=== PATIENT | male | born 1975 | race Caucasian/White ===

== ENCOUNTER 2016-09-17 09:10 | Emergency (ER) | payer OTHER ==
[~2016-09-17] VITALS: Ht 188 cm; Wt 92.0 kg
[~2016-09-17 09:10] MED LIST: ZOFR4TAB3 SL
[2016-09-17 09:13] VITALS: BP 136/65; PULSE 68; RESP 18; TEMP 98.3; O2SAT 97
[2016-09-17] MEDS ORDERED: CEPH-460 PO (11:12)
[2016-09-17] MEDS ORDERED: BACT800T5 PO (11:12)
[2016-09-17] MEDS ORDERED: IBUP800T23 PO (11:12)
--- NOTE | 2016-09-17 11:14 | PD ---
HPI Chief Complaint: Skin Problem Time Seen by Provider: 11:08 Travel History International Travel<30 days: No Contact w/Intl Traveler<30days: No Traveled to known affect area: No History of Present Illness HPI 41 year old male presents to the emergency department for evaluation of an erythematous lump to his back. Patient states he had a nonpainful, nonerythematous lump for approximately 9 years. However, over the past 2-3 days , has become erythematous and more painful. He states that he has trouble sleeping on his back due to the pain. Patient denies any fevers or chills. He has no chronic medical problems and takes no prescribed medications. Patient denies any other complaints at this time. PFSH Past Medical History Hx Anticoagulant Therapy: No Cardiovascular Problems: No Chemotherapy: No Cerebrovascular Accident: No Diabetes: No Diminished Hearing: No Respiratory: No Past Surgical History Ear Surgery: Yes (TUBES CHILD) Tonsillectomy: Yes Social History Alcohol Use: Yes (SOCIALLY) Tobacco Use: No Substance Use: No Allergies-Medications (Allergen,Severity, Reaction): Coded Allergies: No Known Allergies (Unverified , 10/06/15) Reported Meds & Prescriptions Reported Meds & Active Scripts Active Ibuprofen 800 Mg Tab 800 Mg PO TID PRN Keflex (Cephalexin) 500 Mg Cap 500 Mg PO Q6H 10 Days Bactrim DS (Sulfamethoxazole-Trimethoprim) 800-160 Mg Tab 1 Tab PO BID Zofran ODT (Ondansetron HCl) 4 Mg Tab 4 Mg SL Q6H PRN FOR NAUSEA/VOMITING Review of Systems Except as stated in HPI: all other systems reviewed are Neg Physical Exam Narrative GENERAL: Well-developed well-nourished male patient, Ambulatory. Afebrile. SKIN: Warm and dry. Patient has a 4cm x 3cm erythematous lump that is fluctuant to the mid back. No surrounding erythema. HEAD: Normocephalic. Atraumatic. EYES: No scleral icterus. No injection or drainage. NECK: Supple, trachea midline. No JVD or lymphadenopathy. CARDIOVASCULAR: Regular rate and rhythm without murmurs, gallops, or rubs. RESPIRATORY: Breath sounds equal bilaterally. No accessory muscle use. Lungs sounds are clear to auscultation. GASTROINTESTINAL: Abdomen soft, non-tender, nondistended. MUSCULOSKELETAL: No cyanosis, or edema. Data Data Last Documented VS Vital Signs Date Time Temp Pulse Resp B/P Pulse Ox O2 Delivery O2 Flow Rate FiO2 09/17/16 09:13 98.3 68 18 136/65 97 Room Air Orders Wound Culture And Gram Stain (09/17/16 11:07) Lidocai-Epi 1%-1:100,000 Inj (Xylocaine- (09/17/16 11:15) Sulfamet-Trimeth Ds 800-160 Mg (Bactrim (09/17/16 11:15) Cephalexin (Keflex) (09/17/16 11:15) MDM Medical Decision Making Medical Screen Exam Complete: Yes Emergency Medical Condition: Yes Medical Record Reviewed: Yes Differential Diagnosis Infected sebaceous cyst versus abscess versus cellulitis Narrative Course 41-year-old male presents to the emergency department for evaluation of a erythematous, painful lump to his mid back. Patient reports having a lump for 9 years, but just recently came erythematous and painful. Physical exam is consistent with an infected sebaceous cyst. The patient gives verbal consent for incision and drainage. Patient will be given first dose of Bactrim and Keflex in the emergency department. He is instructed on proper wound care. The patient is agreeable to this plan. Procedures Procedure Narrative INCISION AND DRAINAGE OF ABSCESS: The area was prepped and was sterilely draped. A subcutaneous wheal of 1% Xylocaine with epinephrine with a total number 4 mL was used to anesthetize the area. The area was properly anesthetized. A number 11 scalpel was used to make a 1 -cm incision across the area of the abscess. Cultures were obtained. The abscess was drained an irrigated with normal saline. Quarter inch iodoform packing was placed in the wound. Sterile dressing applied. Patient advised to have packing removed in two days. Diagnosis Primary Impression: Infected sebaceous cyst Referrals: Primary Care Physician call for appointment Patient Instructions: Abscess (ED), Abscess Incision and Drainage (ED), General Instructions Departure Forms: Tests/Procedures, Work Release Enter return to work date: Sep 19, 2016 Additional Instructions: Clean twice daily with soap and water and apply [id number] antibiotic ointment. Keep clean and dry. Take antibiotics as directed until gone. Take ibuprofen as instructed as needed with food for pain. Packing removal in 2 days. Return to the emergency department for any acute worsening of symptoms. Med/Other Pt SpecificInfo: Prescription(s) given Scripts Ibuprofen 800 Mg [id number] Mg PO TID PRN (PAIN SCALE 1 TO 10) #21 TAB Ref 0 Prov:Mackenzie Mckay 09/17/16 Cephalexin (Keflex)500 Mg [id number] Mg PO Q6H 10 Days Ref 0 Prov:Mackenzie Mckay 09/17/16 Sulfamethoxazole-Trimethoprim (Bactrim DS)800-160 Mg Tab1 Tab PO BID #20 TAB Ref 0 Prov:Mackenzie Mckay 09/17/16 Disposition: 01 DISCHARGE HOME Condition: Stable Mackenzie Mckay Sep 17, 2016 11:14
[2016-09-17] MEDS ORDERED: LIDOCAINE 1%/EPINEPHrine 1:100,000 SOLN 20 ML VIAL INFIL ONE (11:15)
[2016-09-17] MEDS ORDERED: SULFAMETHOXAZOLE-TRIMETHOPRIM DS 800-160 MG TAB PO ONE (11:15)
[2016-09-17] MEDS ORDERED: CEPHALEXIN MONOHYDRATE 500 MG CAP PO ONE (11:15)
== END 2016-09-17 12:34 | disposition home or self-care (01) ==
LOC: NEPB 09:10
DX: L72.3 Sebaceous cyst (principal); A49.9 Bacterial infection, unspecified
CPT/HCPCS: 10061; 87070; 87185; 87205

== ENCOUNTER 2017-02-12 10:57 | Emergency (ER) | payer SELFPAY ==
[~2017-02-12] VITALS: Ht 188 cm; Wt 93.2 kg
[~2017-02-12 10:57] MED LIST changes: +BACT800T5 PO; +CEPH-460 PO; +IBUP800T23 PO
[2017-02-12 11:00] VITALS: BP 125/81; PULSE 60; RESP 20; TEMP 98.1; O2SAT 98
--- NOTE | 2017-02-12 11:36 | PD ---
Physical Exam Time Seen by Provider: 11:34 Narrative 41 y/o male here with L sided chest pain, tingling in L arm which started at 7 AM today. Vital signs reviewed. Seen at triage desk. Awaiting bed placement. Data Data Last Documented VS Vital Signs Date Time Temp Pulse Resp B/P Pulse Ox O2 Delivery O2 Flow Rate FiO2 02/12/17 11:00 98.1 60 20 125/81 98 Room Air Orders Electrocardiogram (02/12/17 ) [facility] Medical Record Reviewed: Yes Supervised Visit with DOMI: Robe Robin Feb 12, 2017 11:36
[2017-02-12 12:11] LABS: AUTOMATED NEUTROPHIL # 5.5 TH/MM3 (1.8-7.7); BASOPHIL # 0.1 TH/MM3 (0-0.2); BASOPHIL % 0.6 % (0.0-2.0); EOSINOPHIL # 0.5 TH/MM3 (0-0.4); EOSINOPHIL % 5.9 % (0.0-4.0); HEMATOCRIT 44.9 % (39.0-51.0); HEMO FLAGS DIFF FINAL; LYMPH % 21.4 % (9.0-44.0); LYMPHOCYTE # 1.8 TH/MM3 (1.0-4.8); MEAN CELL VOLUME 93.2 FL (80.0-100.0); MEAN CORPUSCULAR HEMOGLOBIN 30.5 PG (27.0-34.0); MEAN CORPUSCULAR HGB CONC 32.7 % (32.0-36.0); MONO % 8.1 % (0.0-8.0); PLATELET COUNT 302 TH/MM3 (150-450); RED BLOOD COUNT 4.82 MIL/MM3 (4.50-5.90); RED CELL DISTRIBUTION WIDTH 13.2 % (11.6-17.2); WHITE BLOOD COUNT 8.5 TH/MM3 (4.0-11.0)
--- NOTE | 2017-02-12 12:17 | RADRPT ---
EXAM DATE/TIME: 02/12/2017 12:06 [facility] COMPARISON: CHEST PA & LAT, October 05, 2015, 12:21. INDICATIONS : Chest pains with tightness. MEDICAL HISTORY : None. SURGICAL HISTORY : None. ENCOUNTER: Initial ACUITY: 2 days PAIN SCORE: 6/10 LOCATION: Bilateral chest FINDINGS: The lungs are clear without infiltrate, nodule, or mass. There is no appreciable pleural effusion fo r technique. Heart and mediastinum are unremarkable. CONCLUSION: No acute cardiopulmonary disease. Fabien Fraser MD on February 12, 2017 at 12:15 Board Certified Radiologist. This report was verified electronically.
[2017-02-12 12:27] VITALS: BP 124/65; PULSE 59; RESP 18; O2SAT 96
[2017-02-12 12:30] LABS: APTT (PATIENT) 28.8 SEC (24.3-30.1); INTERNATIONAL NORMALIZED RATIO 0.9 RATIO; PROTHROMBIN TIME - PATIENT 10.4 SEC (9.8-11.6)
[2017-02-12] MEDS ORDERED: NITROGLYCERIN 0.4 MG SL 25 TABS/BTL SL ONE (13:00)
[2017-02-12] MEDS ORDERED: ASPIRIN 81 MG CHEW TAB CHEW ONE (13:00)
--- NOTE | 2017-02-12 13:00 | PD ---
HPI Chief Complaint: Chest Pain Time Seen by Provider: 12:52 Travel History International Travel<30 days: No Contact w/Intl Traveler<30days: No Traveled to known affect area: No History of Present Illness HPI 41-year-old male presents to the emergency department for evaluation of left- sided chest pain that occurred upon awakening this morning around 7 AM. Patient states that he also has pain and tingling in the left arm. Patient denies ever having this pain in the past. He states that when he walked outside in the humidity, and the pain worsened. He states it feels like a chest tightness. He states his shortness of breath only when outside. He states that taking a deep breath does make the pain worse. Movement does not impact the pain. He states that he had chills last night with diaphoresis. No nausea or vomiting. He denies any fevers or chills. No hemoptysis. Has reported a mild cough. No congestion. No leg edema. No history DVT or PE. He does state that he does a lot of heavy lifting in his job, but nothing out of the ordinary. Patient has no chronic medical problems and takes no prescribed medications. He quit smoking tobacco approximately years ago. He denies any cardiac history. No history of stress test or cardiac catheterization. He has not had aspirin today. Patient states pain was initially 8/10, but has decreased on its own and is currently a 5/10. PFSH Past Medical History Hx Anticoagulant Therapy: No Cardiovascular Problems: No Chemotherapy: No Cerebrovascular Accident: No Diabetes: No Diminished Hearing: No Respiratory: No Past Surgical History Ear Surgery: Yes (TUBES CHILD) Tonsillectomy: Yes Social History Alcohol Use: No (SOCIALLY) Tobacco Use: No Substance Use: No Allergies-Medications (Allergen,Severity, Reaction): Coded Allergies: No Known Allergies (Unverified , 02/12/17) Reported Meds & Prescriptions Reported Meds & Active Scripts Active Ibuprofen 800 Mg Tab 800 Mg PO TID PRN Keflex (Cephalexin) 500 Mg Cap 500 Mg PO Q6H 10 Days Bactrim DS (Sulfamethoxazole-Trimethoprim) 800-160 Mg Tab 1 Tab PO BID Zofran ODT (Ondansetron HCl) 4 Mg Tab 4 Mg SL Q6H PRN FOR NAUSEA/VOMITING Review of Systems Except as stated in HPI: all other systems reviewed are Neg Physical Exam Narrative GENERAL: Well-nourished, well-developed male patient, afebrile. SKIN: Focused skin assessment warm/dry. HEAD: Normocephalic. Atraumatic. EYES: No scleral icterus. No injection or drainage. NECK: Supple, trachea midline. No JVD or lymphadenopathy. CARDIOVASCULAR: Regular rate and rhythm without murmurs, gallops, or rubs. Bilateral radial and pedal pulses 2+. RESPIRATORY: Breath sounds equal bilaterally. No accessory muscle use. Lungs sounds are clear to auscultation. GASTROINTESTINAL: Abdomen soft, non-tender, nondistended. MUSCULOSKELETAL: No cyanosis, or edema. Chest pain is mildly reproducible with palpation. BACK: Nontender without obvious deformity. No CVA tenderness. Data Data Last Documented VS Vital Signs Date Time Temp Pulse Resp B/P Pulse Ox O2 Delivery O2 Flow Rate FiO2 02/12/17 12:27 59 18 124/65 96 Room Air 02/12/17 11:00 98.1 Orders Electrocardiogram (02/12/17 ) Basic Metabolic Panel (Bmp) (02/12/17 11:34) Ckmb (Isoenzyme) Profile (02/12/17 11:34) Complete Blood Count With Diff (02/12/17 11:34) Magnesium (Mg) (02/12/17 11:34) Prothrombin Time / Inr (Pt) (02/12/17 11:34) Act Partial Throm Time (Ptt) (02/12/17 11:34) Troponin I (02/12/17 11:34) Chest, Pa & Lat (02/12/17 11:34) Aspirin Chew (Aspirin Chew) (02/12/17 13:00) Nitroglycerin Sl (Nitrostat Sl) (02/12/17 13:00) CKMB (02/12/17 11:50) CKMB% (02/12/17 11:50) Ondansetron Odt (Zofran Odt) (02/12/17 13:30) Labs Laboratory Tests Test 02/12/17 11:50 White Blood Count 8.5 TH/MM3 Red Blood Count 4.82 MIL/MM3 Hemoglobin 14.7 GM/DL Hematocrit 44.9 % Mean Corpuscular Volume 93.2 FL Mean Corpuscular Hemoglobin 30.5 PG Mean Corpuscular Hemoglobin 32.7 % Concent Red Cell Distribution Width 13.2 % Platelet Count 302 TH/MM3 Mean Platelet Volume 8.0 FL Neutrophils (%) (Auto) 64.0 % Lymphocytes (%) (Auto) 21.4 % Monocytes (%) (Auto) 8.1 % Eosinophils (%) (Auto) 5.9 % Basophils (%) (Auto) 0.6 % Neutrophils # (Auto) 5.5 TH/MM3 Lymphocytes # (Auto) 1.8 TH/MM3 Monocytes # (Auto) 0.7 TH/MM3 Eosinophils # (Auto) 0.5 TH/MM3 Basophils # (Auto) 0.1 TH/MM3 CBC Comment DIFF FINAL Differential Comment Prothrombin Time 10.4 SEC Prothromb Time International 0.9 RATIO Ratio Activated Partial 28.8 SEC Thromboplast Time Sodium Level 136 MEQ/L Potassium Level 4.3 MEQ/L Chloride Level 102 MEQ/L Carbon Dioxide Level 27.4 MEQ/L Anion Gap 7 MEQ/L Blood Urea Nitrogen 11 MG/DL Creatinine 0.87 MG/DL Estimat Glomerular Filtration 97 ML/MIN Rate Random Glucose 82 MG/DL Calcium Level 9.4 MG/DL Magnesium Level 2.2 MG/DL Total Creatine Kinase 253 U/L Creatine Kinase MB 0.9 NG/ML Troponin I LESS THAN 0.02 NG/ML MDM Medical Decision Making Medical Screen Exam Complete: Yes Emergency Medical Condition: Yes Medical Record Reviewed: Yes Interpretation(s) Last Impressions Chest X-Ray 02/12/17 1134 Signed Impressions: Service Date/Time: January 12:06 - CONCLUSION: No acute cardiopulmonary disease. Fabien Fraser MD Differential Diagnosis ACS versus chest wall pain versus pneumonia versus pneumothorax Narrative Course 41-year-old male presents to the emergency department for evaluation of left- sided chest pain with pain and tingling down the left arm that started this morning. No history of the same. EKG shows sinus bradycardia, heart rate 52. CBC, BMP, CK, troponin, chest x-ray ordered and pending. Patient is given aspirin 162 mg by mouth and nitroglycerin 0.4 mg tablet daily. Patient is PERC negative. CBC shows no acute abnormality. BMP is unremarkable. CK is 253. Troponin is less than 0.02. Magnesium is 2.2. Coags are unremarkable. Chest x-ray shows no acute cardiopulmonary disease. 1320 - Upon reevaluation, patient states that he is much improved after nitroglycerin. He is stating that he is nauseated at this time. Patient is given Zofran 4 mg by mouth. I did discuss 23 observation of the chest pain center for further evaluation with the patient. Think that this would be recommended with the symptoms the patient is having. However, the patient states that he cannot miss work. He is going to talk with his significant other and make a decision. 1330 - Patient requests to leave AMA. He is aware that I cannot rule out NC at this time without repeat testing. He states he understands, but he must work. He states he will return if symptoms worsen. AMA: The risks of leaving against medical advice without further evaluation treatment were discussed with the patient. These risks include cardiac dysfunction, cardiac dysrhythmia, possible heart attack, possible stroke or . The patient indicated understanding of these risks and appeared to have the capacity to make this decision. Diagnosis Primary Impression: Left against medical advice Additional Impression: Chest pain Qualified Code: R07.9 - Chest pain, unspecified type Disposition: 07 AGAINST MEDICAL ADVICE Mackenzie Mckay Feb 12, 2017 13:00
[2017-02-12 13:14] LABS: BLOOD UREA NITROGEN 11 MG/DL (7-18); CHLORIDE 102 MEQ/L (98-107); POTASSIUM 4.3 MEQ/L (3.5-5.1); SODIUM (NA) 136 MEQ/L (136-145)
[2017-02-12 13:15] LABS: ANION GAP 7 MEQ/L (5-15); BICARBONATE 27.4 MEQ/L (21.0-32.0); CREATINE KINASE 253 U/L (39-308); GLOMERULAR FILTRATION RATE 97 ML/MIN (>89); MAGNESIUM 2.2 MG/DL (1.5-2.5)
[2017-02-12 13:16] LABS: CKMB 0.9 NG/ML (0.5-3.6)
[2017-02-12] MEDS ORDERED: ONDANSETRON ODT 4 MG TAB PO ONE (13:30)
--- NOTE | 2017-02-14 11:16 | EKG ---
Date Performed: 02/12/2017 Time Performed: 11:45:07 PTAGE: 41 years EKG: SINUS BRADYCARDIA INCOMPLETE RIGHT BUNDLE BRANCH BLOCK BORDERLINE ECG PREVIOUS TRACING : 04/15/2014 09.49 DOCTOR: Davi Suárez Interpretating Date/Time 02/14/2017 11:07:44
== END 2017-02-12 14:01 | disposition left against medical advice (07) ==
LOC: NEPE 10:57
DX: R07.9 Chest pain, unspecified (principal); R00.1 Bradycardia, unspecified; I45.10 Unspecified right bundle-branch block; R11.0 Nausea; R05 Cough; R20.2 Paresthesia of skin; R06.02 Shortness of breath; Z79.1 Long term (current) use of non-steroidal anti-inflammatories (NSAID); Z79.899 Other long term (current) drug therapy
CPT/HCPCS: 71020; 80048; 82550; 82552; 83735; 84484; 85025; 85610; 85730; 93005

== ENCOUNTER 2017-05-07 05:26 | Observation (INO) | payer SELFPAY ==
[~2017-05-07] VITALS: Ht 188 cm; Wt 91.0 kg
[2017-05-07 05:37] VITALS: BP 135/84; PULSE 87; RESP 18; TEMP 98.3; O2SAT 96
[2017-05-07] MEDS ORDERED: MORPHINE SULFATE 4 MG/ML INJ IV PUSH ONE (05:45)
[2017-05-07] MEDS ORDERED: NITROGLYCERIN 2% OINT 1 GM PACKET TOP ONE (05:45)
[2017-05-07] MEDS ORDERED: ONDANSETRON HCL 4 MG/2 ML VIAL IV PUSH ONE (05:45)
[2017-05-07] MEDS ORDERED: SODIUM CHLORIDE 0.9% FLUSH 10 ML FLUSH IVF PRN (05:45)
[2017-05-07] MEDS ORDERED: ASPIRIN 81 MG CHEW TAB PO ONE (05:45)
[2017-05-07] MEDS ORDERED: LORazepam 2 MG/ML VIAL IV PUSH ONE (06:00)
[2017-05-07 06:03] LABS: AUTOMATED NEUTROPHIL # 7.9 TH/MM3 (1.8-7.7); BASOPHIL # 0.1 TH/MM3 (0-0.2); BASOPHIL % 0.5 % (0.0-2.0); EOSINOPHIL # 0.1 TH/MM3 (0-0.4); EOSINOPHIL % 1.4 % (0.0-4.0); HEMATOCRIT 38.3 % (39.0-51.0); HEMO FLAGS DIFF FINAL; LYMPH % 13.1 % (9.0-44.0); LYMPHOCYTE # 1.4 TH/MM3 (1.0-4.8); MEAN CELL VOLUME 94.3 FL (80.0-100.0); MEAN CORPUSCULAR HEMOGLOBIN 32.6 PG (27.0-34.0); MEAN CORPUSCULAR HGB CONC 34.5 % (32.0-36.0); MONO % 8.6 % (0.0-8.0); NEUT % 76.4 % (16.0-70.0); PLATELET COUNT 288 TH/MM3 (150-450); RED BLOOD COUNT 4.06 MIL/MM3 (4.50-5.90); RED CELL DISTRIBUTION WIDTH 12.8 % (11.6-17.2); WHITE BLOOD COUNT 10.4 TH/MM3 (4.0-11.0)
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
--- NOTE | 2017-05-07 06:09 | RADRPT ---
EXAM DATE/TIME: 05/07/2017 05:45 [facility] COMPARISON: CHEST PA & LAT, February 12, 2017, 12:06. INDICATIONS : Chest pain. MEDICAL HISTORY : Anxiety Depression SURGICAL HISTORY : None. ENCOUNTER: Initial ACUITY: 1 day PAIN SCORE: 3/10 LOCATION: Bilateral chest FINDINGS: A single view of the chest demonstrates the lungs to be symmetrically aerated without evidence of mas s, infiltrate or effusion. The cardiomediastinal contours are unremarkable. Osseous structures are intact. CONCLUSION: No evidence of acute cardiopulmonary disease. Sam Dumont MD on May 07, 2017 at 6:07 Board Certified Radiologist. This report was verified electronically.
[2017-05-07 06:19] LABS: APTT (PATIENT) 26.4 SEC (24.3-30.1); PROTHROMBIN TIME - PATIENT 11.1 SEC (9.8-11.6)
[2017-05-07 06:31] LABS: ANION GAP 9 MEQ/L (5-15); BICARBONATE 28.5 MEQ/L (21.0-32.0); BLOOD UREA NITROGEN 15 MG/DL (7-18); CHLORIDE 102 MEQ/L (98-107); GLOMERULAR FILTRATION RATE 80 ML/MIN (>89); MAGNESIUM 2.3 MG/DL (1.5-2.5); POTASSIUM 3.2 MEQ/L (3.5-5.1); SODIUM (NA) 139 MEQ/L (136-145)
[2017-05-07 06:35] LABS: CREATINE KINASE 563 U/L (39-308)
[2017-05-07 06:48] LABS: CKMB 4.3 NG/ML (0.5-3.6)
[2017-05-07 07:10] VITALS: BP 117/70; PULSE 73; RESP 17; TEMP 97.8; O2SAT 97
--- NOTE | 2017-05-07 07:10 | RADRPT ---
EXAM DATE/TIME: 05/07/2017 06:46 2 [facility] COMPARISON: No previous studies available for comparison. INDICATIONS : Cephalgia. RADIATION DOSE: 35.76 CTDIvol (mGy) MEDICAL HISTORY : None SURGICAL HISTORY : None. ENCOUNTER: Initial ACUITY: 1 day PAIN SCALE: 4/10 LOCATION: Bilateral cranial TECHNIQUE: Multiple contiguous axial images were obtained of the head. Using automated exposure control and adj ustment of the mA and/or kV according to patient size, radiation dose was kept as low as reasonably a chievable to obtain optimal diagnostic quality images. DICOM format image data is available electro nically for review and comparison. FINDINGS: CEREBRUM: The ventricles are normal for age. No evidence of midline shift, mass lesion, hemorrhage or acute in farction. No extra-axial fluid collections are seen. POSTERIOR FOSSA: The cerebellum and brainstem are intact. The 4th ventricle is midline. The cerebellopontine angle i s unremarkable. EXTRACRANIAL: The visualized portion of the orbits is intact. SKULL: The calvaria is intact. No evidence of skull fracture. CONCLUSION: Normal examination for a patient of this age. No significant change has occurred. Nas Rose MD on May 07, 2017 at 6:59 Board Certified Radiologist. This report was verified electronically.
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
[2017-05-07 09:49] VITALS: BP 109/76; TEMP 97.8
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
[2017-05-07 10:30] LABS: CREATINE KINASE 508 U/L (39-308)
[2017-05-07] MEDS ORDERED: ACETAMINOPHEN/HYDROcodone 325 MG/7.5 MG TAB PO PRN (10:30)
[2017-05-07] MEDS ORDERED: ACETAMINOPHEN 500 MG CPLT PO PRN (10:30)
[2017-05-07] MEDS ORDERED: ALPRAZolam 0.25 MG TAB PO PRN (10:30)
[2017-05-07] MEDS ORDERED: ONDANSETRON HCL 4 MG/2 ML VIAL IV PRN (10:30)
[2017-05-07] MEDS ORDERED: SODIUM CHLORIDE 0.9% FLUSH 5 ML FLUSH IVF PRN (10:30)
[2017-05-07] MEDS ORDERED: SODIUM CHLOR 0.9% 1000 ML INJ 1,000 ML IV SCH (10:32)
[2017-05-07 10:42] LABS: CKMB 3.9 NG/ML (0.5-3.6)
[2017-05-07] MEDS ORDERED: POTASSIUM CHLORIDE 20 MEQ CONTROLLED RELEASE TAB PO ONE (11:10)
--- NOTE | 2017-05-07 15:10 | EKG ---
Date Performed: 05/07/2017 Time Performed: 09:43:22 PTAGE: 41 years EKG: Sinus rhythm INCOMPLETE RIGHT BUNDLE BRANCH BLOCK BORDERLINE ECG PREVIOUS TRACING : 05/07/2017 05.46 DOCTOR: Geoff Howell Interpretating Date/Time 05/07/2017 15:09:07
--- NOTE | 2017-05-07 15:10 | EKG ---
Date Performed: 05/07/2017 Time Performed: 05:46:24 PTAGE: 41 years EKG: Sinus rhythm POSSIBLE RIGHT VENTRICULAR CONDUCTION DELAY POSSIBLE INFERIOR MYOCARDIAL INFARCTION ABNORMAL ECG PREVIOUS TRACING : 02/12/2017 11.45 Compared to prior tracing no significant change DOCTOR: Geoff Howell Interpretating Date/Time 05/07/2017 15:10:24
[2017-05-07] MEDS ORDERED: SODIUM CHLORIDE 0.9% FLUSH 5 ML FLUSH IVF SCH (21:00)
[2017-05-08] MEDS ORDERED: ASPIRIN 325 MG TAB PO SCH (09:00)
== END 2017-05-07 11:41 | disposition left against medical advice (07) ==
LOC: NEPE 05:26 → NEDA 07:39 → NEPGCP 10:20
PROVIDERS: ADMIT Internal Medicine Interventional Cardiology; ATTEND Internal Medicine Interventional Cardiology
DX: R07.89 Other chest pain (principal); R51 Headache; R61 Generalized hyperhidrosis; R11.2 Nausea with vomiting, unspecified; F41.8 Other specified anxiety disorders; F43.0 Acute stress reaction; R06.02 Shortness of breath; Z87.891 Personal history of nicotine dependence; W22.8XXA Striking against or struck by other objects, initial encounter; Y93.89 Activity, other specified
CPT/HCPCS: 70450; 71010; 80048; 82550; 82552; 83735; 84484; 85025; 85610; 85730; 93005; 96374; 96375; 99285; G0378; J2060; J2270; J2405

== ENCOUNTER 2017-05-14 22:38 | Emergency (ER) | payer SELFPAY ==
[~2017-05-14] VITALS: Ht 188 cm; Wt 100.0 kg
[2017-05-14 22:41] VITALS: BP 135/95; PULSE 85; RESP 15; TEMP 98.5; O2SAT 94
[2017-05-14] MEDS ORDERED: LORazepam 2 MG/ML VIAL IM ONE (23:30)
[2017-05-14] MEDS ORDERED: HALOPERIDOL LACTATE 5 MG/ML AMP IM ONE (23:30)
--- NOTE | 2017-05-14 23:34 | PD ---
HPI Chief Complaint: Anxiety Time Seen by Provider: 23:17 Travel History International Travel<30 days: No Contact w/Intl Traveler<30days: No Traveled to known affect area: No History of Present Illness HPI 41-year-old white male presents to emergency department stating that he's having a mental breakdown. He feels overwhelmed with anxiety. He was going to leave to go to [place] this week to go live with his father who suffered a stroke 2 months ago. He had planned on starting over [place]. He states that he is 41 years old and has nothing here in [facility]. He just broke up with his girlfriend this past week. He is looking forward to starting over. He was notified this morning that his father . Family members and [place] do not want him out there. He would have to start all over by himself. He's become very emotional he's been stressed out at work. He denies any suicidal or homicidal ideation. He states that he just feels his life is falling apart around him. [facility] Past Medical History Narrative Medical Anxiety and depression Hx Anticoagulant Therapy: No Anxiety: Yes Depression: Yes Cardiovascular Problems: No Chemotherapy: No Cerebrovascular Accident: No Diabetes: No Diminished Hearing: No Respiratory: No Immunizations Current: No Tetanus Vaccination: < 5 Years Past Surgical History Narrative Surgical Tonsillectomy, bilateral myringotomy tubes Ear Surgery: Yes (TUBES CHILD) Tonsillectomy: Yes Social History Alcohol Use: No Tobacco Use: No Substance Use: No Allergies-Medications (Allergen,Severity, Reaction): Coded Allergies: No Known Allergies (Unverified , 05/14/17) Reported Meds & Prescriptions Reported Meds & Active Scripts Active No Active Prescriptions or Reported Medications Review of Systems Except as stated in HPI: all other systems reviewed are Neg General / Constitutional: No: Fever, Chills Eyes: No: Diploplia, Blurred Vision HENT: No: Headaches, Sore Throat Cardiovascular: Positive: Chest Pain or Discomfort, No: Palpitations, Irregular Rhythm, Tachycardia Respiratory: No: Cough, Shortness of Breath Gastrointestinal: No: Nausea, Vomiting Genitourinary: No: Frequency, Dysuria Musculoskeletal: No: Myalgias, Arthralgias Skin: No Rash Neurologic: No: Weakness, Dizziness Psychiatric: Positive: Anxiety, Depression, Mood Disorder, No: Suicidal Ideations, Disorder of Thought, Substance Abuse, Homicidal Ideation Physical Exam Narrative GENERAL: Well-nourished, well-developed patient. Patient is tearful. SKIN: Warm and dry. HEAD: Normocephalic and atraumatic. EYES: No scleral icterus. No injection or drainage. ENT: No nasal drainage noted. Mucous membranes pink. Airway patent. NECK: Supple, trachea midline. Moves head freely without obvious discomfort. CARDIOVASCULAR: Regular rate and rhythm without murmurs, gallops, or rubs. RESPIRATORY: Breath sounds equal bilaterally. No accessory muscle use. GASTROINTESTINAL: Abdomen soft, non-tender, nondistended. EXTREMITIES: No cyanosis or edema. BACK: Nontender without obvious deformity. No CVA tenderness. NEURO: Patient is alert and oriented. no sensorimotor deficits. Nonfocal. Normal speech. PSYCH: No delusions. No auditory or visual hallucinations. Data Data Last Documented VS Vital Signs Date Time Temp Pulse Resp B/P (MAP) Pulse Ox O2 Delivery O2 Flow Rate FiO2 05/14/17 22:41 98.5 85 15 135/95 (108) 94 Room Air Orders Orders Psych Screen (05/14/17 23:27) Haloperidol Inj (Haldol Inj) (05/14/17 23:30) Lorazepam Inj (Ativan Inj) (05/14/17 23:30) MDM Medical Decision Making Medical Screen Exam Complete: Yes Emergency Medical Condition: Yes Medical Record Reviewed: Yes Differential Diagnosis Differential diagnoses: Adjustment reaction, anxiety, depression, Narrative Course Patient is given Haldol 5 mg and Ativan 2 mg IM. I will have the psych screener see the patient. I have informed the patient that he has been medicated to allow him to sleep and reset his brain. It is hoped that he will be discharged in the morning after a good night sleep. I intend to allow him to leave in the morning with outpatient treatment follow-up. He is not acutely suicidal or homicidal. I feel comfortable treating him and discharge him. Patient Instructions: General Instructions Scripts No Active Prescriptions or Reported Meds Disposition: 01 DISCHARGE HOME Condition: Stable Nas Oscar May 14, 2017 23:34
[2017-05-15] MEDS ORDERED: VIST50CA PO (01:43)
== END 2017-05-15 06:52 | disposition home or self-care (01) ==
LOC: NEPD 22:38
DX: F41.9 Anxiety disorder, unspecified (principal); F32.9 Major depressive disorder, single episode, unspecified
CPT/HCPCS: 96372; 99284; J1630; J2060

== ENCOUNTER 2017-05-23 02:22 | Emergency (ER) | payer SELFPAY ==
[~2017-05-23] VITALS: Ht 180.3 cm; Wt 80.0 kg
[~2017-05-23 02:22] MED LIST changes: -BACT800T5 PO; -CEPH-460 PO; -IBUP800T23 PO; +VIST50CA PO; -ZOFR4TAB3 SL
[2017-05-23 02:37] VITALS: BP 124/78; PULSE 79; RESP 17; TEMP 98.7; O2SAT 94
[2017-05-23] MEDS ORDERED: ALPRAZolam 0.5 MG TAB PO ONE (03:45)
[2017-05-23 04:01] LABS: AUTOMATED NEUTROPHIL # 4.7 TH/MM3 (1.8-7.7); BASOPHIL # 0.1 TH/MM3 (0-0.2); BASOPHIL % 0.7 % (0.0-2.0); EOSINOPHIL # 0.4 TH/MM3 (0-0.4); EOSINOPHIL % 4.6 % (0.0-4.0); HEMATOCRIT 39.5 % (39.0-51.0); HEMOGLOBIN 13.4 GM/DL (13.0-17.0); LYMPH % 27.5 % (9.0-44.0); LYMPHOCYTE # 2.3 TH/MM3 (1.0-4.8); MEAN CELL VOLUME 95.1 FL (80.0-100.0); MEAN CORPUSCULAR HEMOGLOBIN 32.3 PG (27.0-34.0); MEAN CORPUSCULAR HGB CONC 33.9 % (32.0-36.0); MEAN PLATELET VOLUME 8.3 FL (7.0-11.0); MONO % 10.8 % (0.0-8.0); MONOCYTE # 0.9 TH/MM3 (0-0.9); NEUT % 56.4 % (16.0-70.0); PLATELET COUNT 281 TH/MM3 (150-450); RED BLOOD COUNT 4.15 MIL/MM3 (4.50-5.90); WHITE BLOOD COUNT 8.3 TH/MM3 (4.0-11.0)
[2017-05-23 04:26] LABS: ALT (GPT) 55 U/L (12-78); AST (GOT) 55 U/L (15-37); BICARBONATE 25.1 MEQ/L (21.0-32.0); BLOOD UREA NITROGEN 17 MG/DL (7-18); CALCIUM 8.7 MG/DL (8.5-10.1); CHLORIDE 105 MEQ/L (98-107); CREATININE 0.89 MG/DL (0.60-1.30); GLOMERULAR FILTRATION RATE 94 ML/MIN (>89); GLUCOSE,RANDOM 78 MG/DL (74-106); SODIUM (NA) 138 MEQ/L (136-145)
[2017-05-23 04:29] LABS: ALKALINE PHOSPHATASE 95 U/L (45-117); TOTAL BILIRUBIN ADULT 0.2 MG/DL (0.2-1.0); TOTAL PROTEIN 7.7 GM/DL (6.4-8.2)
[2017-05-23 04:49] VITALS: BP 144/84; PULSE 98; RESP 15; O2SAT 98
--- NOTE | 2017-05-23 04:55 | PD ---
HPI Chief Complaint: Anxiety Time Seen by Provider: 03:32 Travel History International Travel<30 days: No Contact w/Intl Traveler<30days: No Traveled to known affect area: No History of Present Illness HPI Patient is a 41-year-old male presenting to emergency room voluntarily due to anxiety and panic disorder. Patient reports recent breakup with his girlfriend who then told him she was marrying the older gentleman they were currently living with. Patient states he has no where to go, he doesn't know what to do with himself. He moved back from [place] to be with her. He has no family or money now. Denies any physical complaints at this time. He denies any suicidal, homicidal ideations. He further denies any hallucinations or previous suicide attempt. PFSH Past Medical History Hx Anticoagulant Therapy: No Anxiety: Yes Depression: Yes Cardiovascular Problems: No Chemotherapy: No Cerebrovascular Accident: No Diabetes: No Diminished Hearing: No Respiratory: No Immunizations Current: No Past Surgical History Ear Surgery: Yes (TUBES CHILD) Tonsillectomy: Yes Social History Alcohol Use: Yes Tobacco Use: No Substance Use: No Allergies-Medications (Allergen,Severity, Reaction): Coded Allergies: No Known Allergies (Unverified , 05/23/17) Reported Meds & Prescriptions Reported Meds & Active Scripts Active Vistaril (Hydroxyzine Pamoate) 50 Mg Cap 50 Mg PO QID PRN Review of Systems Except as stated in HPI: all other systems reviewed are Neg Psychiatric: Positive: Anxiety, Depression Physical Exam Narrative GENERAL: Well-developed, well-nourished, alert male. Appears anxious and upset. SKIN: Warm and dry. HEAD: Atraumatic. Normocephalic. EYES: Pupils equal and round. No scleral icterus. No injection or drainage. ENT: No nasal bleeding or discharge. Mucous membranes pink and moist. NECK: Trachea midline. No JVD. CARDIOVASCULAR: Regular rate and rhythm. RESPIRATORY: No accessory muscle use. Clear to auscultation. Breath sounds equal bilaterally. GASTROINTESTINAL: Abdomen soft, non-tender, nondistended. Hepatic and splenic margins not palpable. MUSCULOSKELETAL: Extremities without clubbing, cyanosis, or edema. No obvious deformities. NEUROLOGICAL: Awake and alert. No obvious cranial nerve deficits. Motor grossly within normal limits. Five out of 5 muscle strength in the arms and legs. Normal speech. PSYCHIATRIC: Depressed mood and affect; insight and judgment normal. Data Data Last Documented VS Vital Signs Date Time Temp Pulse Resp B/P (MAP) Pulse Ox O2 Delivery O2 Flow Rate FiO2 05/23/17 04:49 98 15 144/84 (104) 98 Room Air 05/23/17 02:37 98.7 Orders Orders Complete Blood Count With Diff (05/23/17 03:38) Comprehensive Metabolic Panel (05/23/17 03:38) Psych Screen (05/23/17 03:38) Drug Screen, Random Urine (05/23/17 03:38) Alprazolam (Xanax) (05/23/17 03:45) Labs Laboratory Tests Test 05/23/17 03:55 White Blood Count 8.3 TH/MM3 Red Blood Count 4.15 MIL/MM3 Hemoglobin 13.4 GM/DL Hematocrit 39.5 % Mean Corpuscular Volume 95.1 FL Mean Corpuscular Hemoglobin 32.3 PG Mean Corpuscular Hemoglobin Concent 33.9 % Red Cell Distribution Width 13.0 % Platelet Count 281 TH/MM3 Mean Platelet Volume 8.3 FL Neutrophils (%) (Auto) 56.4 % Lymphocytes (%) (Auto) 27.5 % Monocytes (%) (Auto) 10.8 % Eosinophils (%) (Auto) 4.6 % Basophils (%) (Auto) 0.7 % Neutrophils # (Auto) 4.7 TH/MM3 Lymphocytes # (Auto) 2.3 TH/MM3 Monocytes # (Auto) 0.9 TH/MM3 Eosinophils # (Auto) 0.4 TH/MM3 Basophils # (Auto) 0.1 TH/MM3 CBC Comment DIFF FINAL Differential Comment Blood Urea Nitrogen 17 MG/DL Creatinine 0.89 MG/DL Random Glucose 78 MG/DL Total Protein 7.7 GM/DL Albumin 4.0 GM/DL Calcium Level 8.7 MG/DL Alkaline Phosphatase 95 U/L Aspartate Amino Transf (AST/SGOT) 55 U/L Alanine Aminotransferase (ALT/SGPT) 55 U/L Total Bilirubin 0.2 MG/DL Sodium Level 138 MEQ/L Potassium Level 3.7 MEQ/L Chloride Level 105 MEQ/L Carbon Dioxide Level 25.1 MEQ/L Anion Gap 8 MEQ/L Estimat Glomerular Filtration Rate 94 ML/MIN MDM Medical Decision Making Medical Screen Exam Complete: Yes Emergency Medical Condition: Yes Interpretation(s) Vital Signs Date Time Temp Pulse Resp B/P (MAP) Pulse Ox O2 Delivery O2 Flow Rate FiO2 05/23/17 04:49 98 15 144/84 (104) 98 Room Air 05/23/17 02:37 98.7 Differential Diagnosis Anxiety versus panic disorder versus depression versus other Narrative Course Patient resented voluntarily for psychiatric evaluation secondary to anxiety and panic disorder. He is tearful and visibly upset. His vital signs are stable. Mental health screening discussed with the patient. Psychiatric screen ordered. Patient was given Xanax by mouth 1 dose. CBC and chemistry reviewed, no acute abnormalities identified. Urine drug screen is pending however patient is medically cleared for psychiatric evaluation at this time. Diagnosis Primary Impression: Medical clearance for psychiatric admission Additional Impression: Anxiety Condition: Stable Sheryl Bautista May 23, 2017 04:55
--- NOTE | 2017-05-23 09:44 | PD ---
Data Data Last Documented VS Vital Signs Date Time Temp Pulse Resp B/P (MAP) Pulse Ox O2 Delivery O2 Flow Rate FiO2 05/23/17 08:51 05/23/17 04:49 98 15 98 Room Air 05/23/17 02:37 98.7 Orders Orders Complete Blood Count With Diff (05/23/17 03:38) Comprehensive Metabolic Panel (05/23/17 03:38) Psych Screen (05/23/17 03:38) Drug Screen, Random Urine (05/23/17 03:38) Alprazolam (Xanax) (05/23/17 03:45) Ed Discharge Order (05/23/17 09:43) Labs Laboratory Tests Test 05/23/17 03:55 White Blood Count 8.3 TH/MM3 Red Blood Count 4.15 MIL/MM3 Hemoglobin 13.4 GM/DL Hematocrit 39.5 % Mean Corpuscular Volume 95.1 FL Mean Corpuscular Hemoglobin 32.3 PG Mean Corpuscular Hemoglobin Concent 33.9 % Red Cell Distribution Width 13.0 % Platelet Count 281 TH/MM3 Mean Platelet Volume 8.3 FL Neutrophils (%) (Auto) 56.4 % Lymphocytes (%) (Auto) 27.5 % Monocytes (%) (Auto) 10.8 % Eosinophils (%) (Auto) 4.6 % Basophils (%) (Auto) 0.7 % Neutrophils # (Auto) 4.7 TH/MM3 Lymphocytes # (Auto) 2.3 TH/MM3 Monocytes # (Auto) 0.9 TH/MM3 Eosinophils # (Auto) 0.4 TH/MM3 Basophils # (Auto) 0.1 TH/MM3 CBC Comment DIFF FINAL Differential Comment Blood Urea Nitrogen 17 MG/DL Creatinine 0.89 MG/DL Random Glucose 78 MG/DL Total Protein 7.7 GM/DL Albumin 4.0 GM/DL Calcium Level 8.7 MG/DL Alkaline Phosphatase 95 U/L Aspartate Amino Transf (AST/SGOT) 55 U/L Alanine Aminotransferase (ALT/SGPT) 55 U/L Total Bilirubin 0.2 MG/DL Sodium Level 138 MEQ/L Potassium Level 3.7 MEQ/L Chloride Level 105 MEQ/L Carbon Dioxide Level 25.1 MEQ/L Anion Gap 8 MEQ/L Estimat Glomerular Filtration Rate 94 ML/MIN [facility] Supervised Visit with DOMI: Yes Narrative Course I did not participate in medical care of patient, patient had already been discharged and has left the ER prior to my shift, I was asked to place an "ED Discharge" order. Diagnosis Primary Impression: Medical clearance for psychiatric admission Additional Impression: Anxiety Patient Instructions: General Instructions Departure Forms: Tests/Procedures Condition: Stable Cass Hughes DO May 23, 2017 09:44
== END 2017-05-23 09:47 | disposition home or self-care (01) ==
LOC: NEPD 02:22
DX: F41.0 Panic disorder [episodic paroxysmal anxiety] (principal); F32.9 Major depressive disorder, single episode, unspecified
CPT/HCPCS: 80053; 85025; 99283